=== PATIENT | male | born 1990 | race African-American/Black ===

== ENCOUNTER 2022-11-28 06:42 | Outpatient (CLI) | payer OTHER | END 2022-11-28 06:51 | disposition home or self-care (01) | LOC: LAB 06:42 | PROVIDERS: ATTEND Obstetrics & Gynecology | DX: Z20.828 Contact with and (suspected) exposure to other viral communicable diseases (principal); Z20.818 Contact with and (suspected) exposure to other bacterial communicable diseases ==

== ENCOUNTER 2023-05-15 10:46 | Outpatient (CLI) | payer OTHER | END 2023-05-15 10:49 | disposition home or self-care (01) | LOC: LAB 10:46 | PROVIDERS: ATTEND Radiology Diagnostic Radiology | DX: H81.4 Vertigo of central origin (principal) ==

== ENCOUNTER 2023-05-17 08:06 | Outpatient (CLI) | payer OTHER | END 2023-05-17 08:22 | disposition home or self-care (01) | LOC: MRI 08:06 | PROVIDERS: ATTEND Family Medicine | DX: H81.4 Vertigo of central origin (principal) | CPT/HCPCS: 70552 ==